=== PATIENT | female | born 1975 | race Caucasian/White ===

== ENCOUNTER 2019-08-26 10:57 | Emergency (ER) | payer OTHER, SELFPAY ==
[~2019-08-26] VITALS: Ht 160 cm; Wt 61.5 kg
[2019-08-26 11:08] VITALS: BP 159/108
--- NOTE | 2019-08-26 11:12 | NUR ---
44 YO FEMALE CO COUGH/SOB X THIS MORNING. PT PRESENTS IN NO RESPIRATORY DISTRESS, EUPNIC, CLEAR SPEECH, ALL VSS. PT WORKS IN [facility] [employer] [facility]. PT DENIES ANY PMH AND NO RX MEDS.
[2019-08-26 11:37] VITALS: BP 138/86
== END 2019-08-26 11:37 | disposition home or self-care (01) ==
LOC: MED 10:57
DX: U07.1 COVID-19 (principal); R05 Cough; R06.02 Shortness of breath
CPT/HCPCS: 99283; U0003

== ENCOUNTER 2019-09-01 10:24 | Emergency (ER) | payer OTHER, SELFPAY ==
[~2019-09-01] VITALS: Ht 154.9 cm; Wt 61.2 kg
--- NOTE | 2019-09-01 10:35 | NUR ---
PT AMBULATED TO BED 2. PLACED IN COVID PRECAUTIONS.
[2019-09-01 10:37] VITALS: BP 171/97
--- NOTE | 2019-09-01 10:48 | NUR ---
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 PT HAS BEEN TESTED POSITVE. PT STATES THAT SHE WOULD LIKE A CHEST XRAY. VSS. NO PHM AND NO RX MEDS
[2019-09-01 12:04] VITALS: BP 152/82
--- NOTE | 2019-09-01 12:05 | NUR ---
Patient discharged with v/s stable. Written and verbal after care instructions given and explained. Patient alert, oriented and verbalized understanding of instructions. Ambulatory with steady gait. All questions addressed prior to discharge. ID band removed. Patient advised to follow up with PMD. Rx of AZITHROMYCIN, NAPROSYN AND ALBUTEROL given. Patient educated on indication of medication including possible reaction and side effects. Opportunity to ask questions provided and answered.
== END 2019-09-01 12:05 | disposition home or self-care (01) ==
LOC: MED 10:24 → EEVIPCON 10:24 → MED 12:05
DX: U07.1 COVID-19 (principal)
CPT/HCPCS: 36600; 71045; 99284; Q0092

== ENCOUNTER 2020-02-13 09:29 | Outpatient (CLI) | payer OTHER ==
[2020-02-13 10:21] LABS: BASOPHILS % (AUTO) 0.5 % (0.0-2.0); EOSINOPHILS # (AUTO) 0.1 K/uL (0-0.4); EOSINOPHILS % (AUTO) 1.8 % (0.0-4.0); HEMATOCRIT 40.4 % (36-48); HEMOGLOBIN 13.4 g/dL (12.0-16.0); LYMPHOCYTES # (AUTO) 1.3 K/uL (2.5-16.5); LYMPHOCYTES % (AUTO) 15.3 % (20.5-51.1); MEAN CORPUSCULAR HEMOGLOBIN 30 pg (27-31); MEAN CORPUSCULAR HGB CONC 33 g/dL (33-37); MEAN CORPUSCULAR VOLUME 90.7 fL (80-94); MONOCYTES # (AUTO) 0.6 K/uL (0.8-1.0); MONOCYTES % (AUTO) 7.5 % (1.7-9.3); NEUTROPHILS # (AUTO) 6.1 K/uL (1.8-7.7); NEUTROPHILS % (AUTO) 74.9 % (42.2-75.2); PLATELET COUNT (AUTO) 390 K/uL (140-450); RED BLOOD CELL COUNT(AUTO) 4.45 MIL/uL (4.20-5.40); RED CELL DISTRIBUTION WIDTH 12.4 % (11.6-13.7); WHITE BLOOD COUNT (AUTO) 8.2 K/uL (4.8-10.8)
[2020-02-13 10:50] LABS: ALBUMIN 3.7 g/dL (3.4-5.0); ANION GAP 5.4 (8-16); CARBON DIOXIDE 30.7 mmol/L (21-32); CREATININE 0.6 mg/dL (0.6-1.3); POTASSIUM 4.1 mmol/L (3.5-5.1); THYROID STIMULATING HORMONE 1.12 uIU/mL (0.34-3.74); TOTAL BILIRUBIN 0.3 mg/dL (0.0-1.0)
[2020-02-13 11:06] LABS: CHOL/HDL RATIO 2.9 (1-4.5)
== END 2020-02-13 22:37 | disposition home or self-care (01) ==
LOC: MLB 09:29
PROVIDERS: ATTEND Internal Medicine Geriatric Medicine
DX: I10 Essential (primary) hypertension (principal); Z00.00 Encounter for general adult medical examination without abnormal findings
CPT/HCPCS: 36415; 80053; 82306; 83036; 84443; 85025

== ENCOUNTER 2020-05-05 06:49 | Outpatient (CLI) | payer OTHER ==
[2020-05-05 10:40] LABS: ANION GAP 12.7 (8-16); CREATININE 0.7 mg/dL (0.6-1.3); POTASSIUM 3.7 mmol/L (3.5-5.1)
== END 2020-05-05 17:36 | disposition home or self-care (01) ==
LOC: MLB 06:49
PROVIDERS: ATTEND Internal Medicine Geriatric Medicine
DX: I10 Essential (primary) hypertension (principal); E55.9 Vitamin D deficiency, unspecified
CPT/HCPCS: 36415; 80048; 82306